=== PATIENT | female | born 1975 | race Caucasian/White ===

== ENCOUNTER → 2021-12-09 | Outpatient (CLI) | payer OTHER, SELFPAY ==
[2021-12-14 12:09] LABS: Clam <0.10 kU/L (Class 0); Codfish <0.10 kU/L (Class 0); Corn <0.10 kU/L (Class 0); Egg, White 0.14 kU/L (Class 0/I); Milk (Cow) <0.10 kU/L (Class 0); Peanut <0.10 kU/L (Class 0); SCALLOP <0.10 kU/L (Class 0); Shrimp <0.10 kU/L (Class 0); Soybean <0.10 kU/L (Class 0); Walnut, (Food) <0.10 kU/L (Class 0); Wheat <0.10 kU/L (Class 0)
[2021-12-14 13:07] LABS: Alternaria tenuis <0.10 kU/L (Class 0); Ash, White <0.10 kU/L (Class 0); Aspergillus fumigatus <0.10 kU/L (Class 0); Bermuda Grass <0.10 kU/L (Class 0); Birch <0.10 kU/L (Class 0); Black Walnut <0.10 kU/L (Class 0); Cat Hair / Dander,Stand <0.10 kU/L (Class 0); Cedar, Mountain <0.10 kU/L (Class 0); Cladosporium herbarum <0.10 kU/L (Class 0); Cockroach, American <0.10 kU/L (Class 0); Cottonwood <0.10 kU/L (Class 0); D farinae Mite 0.21 kU/L (Class 0/I); D pteronyssinus 0.23 kU/L (Class 0/I); Dog Epithelia <0.10 kU/L (Class 0); Elm, American White <0.10 kU/L (Class 0); Immunoglobulin E 129 IU/mL (6-495); Maple/Box Elder <0.10 kU/L (Class 0); Mulberry, White <0.10 kU/L (Class 0); Oak, White <0.10 kU/L (Class 0); Pecan <0.10 kU/L (Class 0); Penicillium Notatum <0.10 kU/L (Class 0); Pigweed, Rough <0.10 kU/L (Class 0); Ragweed, Short/Common 4.53 kU/L (Class IV); Russian Thistle <0.10 kU/L (Class 0); Sheep Sorrel <0.10 kU/L (Class 0); Sycamore, American <0.10 kU/L (Class 0); Timothy Grass <0.10 kU/L (Class 0)
[2021-12-14 16:13] LABS: Mouse Urine <0.10 kU/L (Class 0)
[2021-12-14 16:52] LABS: SESAME SEED <0.10 kU/L (Class 0)
== END | disposition home or self-care (01) ==
PROVIDERS: Referring Provider Otolaryngology; Visit Provider Otolaryngology
DX: T78.40XA Allergy, unspecified, initial encounter (principal)
CPT/HCPCS: 36415; 82785; 86003

== ENCOUNTER → 2022-01-17 | Outpatient (CLI) | payer OTHER, SELFPAY ==
--- NOTE | 2022-01-17 16:50 | CT_ITS ---
EXAM: CT MAXILLOFACIAL WITHOUT INTRAVENOUS CONTRAST CLINICAL INDICATION: SINUSITIS TECHNIQUE: Helically acquired images were obtained of the face without intravenous contrast. This CT exam was performed using one or more of the following dose reduction techniques: automated exposure control, adjustment of the mA and/or kV according to patient size, and/or use of iterative reconstruction technique. This report was created using [employer] report generation technology. RADIATION DOSE: CTDIvol = 33.06 mGy, DLP = 825.58 mGy-cm. COMPARISON: None. FINDINGS: BONES/JOINTS: Old postoperative changes left osteophytic complex. No displaced fracture. No discrete lytic or blastic abnormalities. SOFT TISSUES: Unremarkable. No focal subcutaneous swelling. No discrete fluid collections. ORBITS: Unremarkable. Both globes are unremarkable. Extraocular muscles are normal. Retrobulbar fat appears unremarkable. SINUSES: Trace mucosal thickening posterior left maxillary sinus. MASTOID AIR CELLS: Unremarkable as visualized. Clear. DENTAL: No acute findings. No periodontal osseous erosion. CT/Sinus/Facial Bone IMPRESSION: 1. Old postoperative changes left osteophytic complex. 2. Trace mucosal thickening posterior left maxillary sinus. Electronically Signed: Gama Leonard MD at 1:51 EDT ,
== END | disposition home or self-care (01) ==
LOC: CT 16:49
PROVIDERS: Referring Provider Otolaryngology; Visit Provider Otolaryngology
DX: J32.8 Other chronic sinusitis (principal)
CPT/HCPCS: 70486